=== PATIENT | male | born 1985 | race Caucasian/White ===

== ENCOUNTER 2019-05-29 12:22 | Emergency (ER) | payer OTHER ==
[~2019-05-29] VITALS: Ht 185.4 cm; Wt 94.1 kg
[~2019-05-29 12:22] MED LIST: ACET500C5 PO; FAMO-96 PO; HYDR-4011 PO; IBUP800T48 PO; [UNRECOGNIZED DRUG - REMARK]
[2019-05-29 12:27] VITALS: Ht 185.4 cm; Wt 94.1 kg
[2019-05-29 16:08] VITALS: BP 133/87; PULSE 83; RESP 18
== END 2019-05-29 16:09 | disposition home or self-care (01) ==
LOC: FTE 12:22
DX: R10.31 Right lower quadrant pain (principal); F17.210 Nicotine dependence, cigarettes, uncomplicated; Z79.01 Long term (current) use of anticoagulants
CPT/HCPCS: 36415; 74176; 80053; 81001; 83690; 85025; Z7502